=== PATIENT | male | born 1960 | race African-American/Black ===

== ENCOUNTER 2016-06-15 15:30 | Emergency (ER) | payer MEDICARE, OTHER ==
[~2016-06-15] VITALS: Ht 170.2 cm; Wt 60.0 kg
[~2016-06-15 15:30] MED LIST: ALLO100T57
[2016-06-15 17:00] VITALS: BP 154/95
[2016-06-15 17:04] LABS: BASOPHILS % 1.5 % (0.0-2.0); EOSINOPHILS % 0.4 % (0.0-5.0); HEMATOCRIT. 40.9 % (42.0-52.0); HEMOGLOBIN. 13.4 g/dL (14.0-18.0); LYMPHOCYTES % 33.2 % (20.0-50.0); MEAN CORPUSCULAR HGB CONC 32.6 g/dL (31.0-37.0); MEAN PLATELET VOLUME 7.3 fl (7.4-10.4); MONOCYTES % 7.4 % (2.0-8.0); NEUTROPHILS % 57.5 % (40.0-76.0); PLATELET 221 x1000/uL (130-400); RED BLOOD CELL COUNT 4.31 mill/uL (4.7-6.1); RED CELL DISTRIBUTION WIDTH 14.5 % (11.6-14.6); WHITE BLOOD COUNT 2.8 x1000/uL (4.5-11.0)
[2016-06-15 17:08] LABS: CHLORIDE 106 mEq/L (98-107); INDEX HEMOLYSI 1 (1-3); INDEX ICTERIC 1 (1-4); INDEX LIPEMIC 1 (1-3)
[2016-06-15 17:16] LABS: ALANINE AMINOTRANSFERASE 35 IU/L (13-61); ANION GAP 9; CALCIUM 8.4 mg/dL (8.5-10.1); CARBON DIOXIDE 33 mEq/L (21-32); UREA NITROGEN BLOOD 13 mg/dL (7-21); eGFR > 60 mL/min (>60)
== END 2016-06-15 19:34 | disposition home or self-care (01) ==
LOC: ER 16:30
DX: R56.9 Unspecified convulsions (principal); D72.819 Decreased white blood cell count, unspecified; F79 Unspecified intellectual disabilities; R41.82 Altered mental status, unspecified
CPT/HCPCS: 36415; 70450; 71010; 80053; 85025; 93005; 99285

== ENCOUNTER 2016-11-26 14:35 | Observation (INO) | payer MEDICARE, OTHER ==
[~2016-11-26] VITALS: Ht 154.9 cm; Wt 47.6 kg
[2016-11-26 16:37] LABS: CHLORIDE 107 mEq/L (98-107)
[2016-11-26 16:40] LABS: INR 1.1
[2016-11-26 16:44] LABS: BASOPHILS % 1.3 % (0.0-2.0); EOSINOPHILS % 0.5 % (0.0-5.0); HEMOGLOBIN. 14.9 g/dL (14.0-18.0); LYMPHOCYTES % 29.8 % (20.0-50.0); MEAN CORPUSCULAR HEMOGLOBIN 31.9 pg (28.0-32.0); MEAN CORPUSCULAR VOLUME 96.1 fL (80.0-94.0); MEAN PLATELET VOLUME 7.3 fl (7.4-10.4); MONOCYTES % 8.7 % (2.0-8.0); NEUTROPHILS % 59.7 % (40.0-76.0); PLATELET 234 x1000/uL (130-400); RED BLOOD CELL COUNT 4.68 mill/uL (4.7-6.1); RED CELL DISTRIBUTION WIDTH 14.5 % (11.6-14.6)
[2016-11-26 16:48] LABS: CARBON DIOXIDE 34 mEq/L (21-32)
[2016-11-26 16:49] LABS: TROPONIN I < 0.02 ng/mL (0.00-0.04)
[2016-11-26] MEDS ORDERED: SODIUM CHLORIDE 0.9% 1,000 ML IV ONE (18:30)
[2016-11-26] MEDS ORDERED: PIPERACILLIN/TAZ 2.25G PREMIX 50 ML IV ONE (20:45)
[2016-11-26 21:45] VITALS: BP 169/96
[2016-11-26] MEDS ORDERED: ONDANSETRON HCL 4MG/2ML VIAL IV PRN (23:15)
[2016-11-26] MEDS ORDERED: ACETAMINOPHEN 325MG TABLET PO PRN (23:15)
[2016-11-27] VITALS: BP 150/88
[2016-11-27] MEDS: DEXT 5%/0.45% NACL 1000ML 1,000 ML IV SCH ×3 (00:47→21:53)
[2016-11-27] MEDS: PIPERACILLIN/TAZ 3.375G PREMIX 50 ML IV SCH ×4 (03:39→21:53)
[2016-11-27 04:00] VITALS: BP 123/63
[2016-11-27 07:04] LABS: CARBON DIOXIDE 29 mEq/L (21-32); CHLORIDE 108 mEq/L (98-107)
[2016-11-27 07:34] LABS: BASOPHILS % 0.5 % (0.0-2.0); EOSINOPHILS % 0.3 % (0.0-5.0); HEMATOCRIT. 39.6 % (42.0-52.0); HEMOGLOBIN. 13.1 g/dL (14.0-18.0); LYMPHOCYTES % 14.8 % (20.0-50.0); MEAN CORPUSCULAR HEMOGLOBIN 31.3 pg (28.0-32.0); MEAN CORPUSCULAR VOLUME 94.7 fL (80.0-94.0); MEAN PLATELET VOLUME 7.9 fl (7.4-10.4); MONOCYTES % 7.4 % (2.0-8.0); PLATELET 229 x1000/uL (130-400); RED BLOOD CELL COUNT 4.18 mill/uL (4.7-6.1); RED CELL DISTRIBUTION WIDTH 14.1 % (11.6-14.6)
[2016-11-27] MEDS: ALLOPURINOL 100 MG TABLET PO SCH (09:04)
[2016-11-27] MEDS: ENOXAPARIN 40MG/0.4ML SYR SUBCUT SCH (09:04)
[2016-11-27] MEDS: PANTOPRAZOLE 40MG DR TABLET PO SCH (09:04)
[2016-11-27 12:00] VITALS: BP 117/64
[2016-11-27 12:52] VITALS: BP 146/65
[2016-11-27 16:00] VITALS: BP 121/73
[2016-11-27 20:00] VITALS: BP 136/89
[2016-11-28] VITALS: BP 126/66
[2016-11-28] MEDS: PIPERACILLIN/TAZ 3.375G PREMIX 50 ML IV SCH ×4 (03:33→20:23)
[2016-11-28 04:00] VITALS: BP 137/76
[2016-11-28 08:00] VITALS: BP 152/78
[2016-11-28] MEDS ORDERED: POTASSIUM CHLORIDE 20MEQ TABLET SR PO SCH (08:00)
[2016-11-28] MEDS: DEXT 5%/0.45% NACL 1000ML 1,000 ML IV SCH ×2 (09:35→20:24)
[2016-11-28] MEDS: PANTOPRAZOLE 40MG DR TABLET PO SCH (09:35)
[2016-11-28] MEDS: ALLOPURINOL 100 MG TABLET PO SCH (09:35)
[2016-11-28] MEDS: ENOXAPARIN 40MG/0.4ML SYR SUBCUT SCH (09:36)
[2016-11-28] MEDS ORDERED: LIDOCAINE HCL 1% 20ML VIAL (Pyxis) INJ INFIL NR (11:30)
[2016-11-28 12:00] VITALS: BP 129/56
[2016-11-28 16:00] VITALS: BP 137/68
[2016-11-28 20:00] VITALS: BP 135/86
[2016-11-28] MEDS ORDERED: LACTULOSE 20G/30ML UDC PO PRN (23:00)
[2016-11-29] VITALS: BP 131/90
[2016-11-29] MEDS: PIPERACILLIN/TAZ 3.375G PREMIX 50 ML IV SCH ×2 (03:14→09:19)
[2016-11-29 04:00] VITALS: BP 123/82
[2016-11-29 04:17] LABS: CHLAMYDIA TRACHOMATIS NAA Negative (Negative); NEISSERIA GONORRHOEAE NAA Negative (Negative)
[2016-11-29 08:00] VITALS: BP 143/65
[2016-11-29] MEDS ORDERED: FAMOTIDINE 20MG TABLET PO SCH (09:00)
[2016-11-29] MEDS: DEXT 5%/0.45% NACL 1000ML 1,000 ML IV SCH (09:20)
[2016-11-29] MEDS: ALLOPURINOL 100 MG TABLET PO SCH (09:20)
[2016-11-29] MEDS: ENOXAPARIN 40MG/0.4ML SYR SUBCUT SCH (09:21)
[2016-11-29] MEDS ORDERED: POTASSIUM CHLORIDE 20MEQ TABLET SR PO SCH (11:15)
[2016-11-29 12:00] VITALS: BP 115/63
[2016-11-29 15:57] VITALS: BP 118/74
[2016-11-29 16:00] VITALS: BP 118/74
== END 2016-11-29 16:30 | disposition home or self-care (01) ==
LOC: ER 15:00 → INTOOBSV 20:43 → 7WST 20:43 → EDBEDREQTM 20:47 → EDBEDREQ 20:47 → ENRESERV 20:49 → 7WST 11-27 08:38
PROVIDERS: ADMIT Internal Medicine; ATTEND Internal Medicine
DX: L89.159 Pressure ulcer of sacral region, unspecified stage (principal); Q90.9 Down syndrome, unspecified; E86.0 Dehydration; E87.70 Fluid overload, unspecified; E88.09 Other disorders of plasma-protein metabolism, not elsewhere classified; R62.7 Adult failure to thrive; Z74.01 Bed confinement status
CPT/HCPCS: 36415; 51702; 71010; 80048; 80053; 83880; 84484; 85025; 85610; 87040; 87070; 87086; 87186; 87205; 87491; 87591; 93005; 96361; 96365; 96372; 96375; 96376; 99285; A6261; G0378; J1650; J2543; J3490; J7030; A4315